=== PATIENT | male | born 1975 | race Hispanic/Latino ===

== ENCOUNTER 2017-07-19 12:35 | Observation (INO) | payer SELFPAY ==
[~2017-07-19] VITALS: Ht 167.6 cm; Wt 80.7 kg
[~2017-07-19 12:35] MED LIST: POTA10TA14 PO
[2017-07-19 13:07] LABS: BASOPHILS % (AUTO) 0.8 % (0.0-5.0); HEMATOCRIT 31.9 % (42-54); LYMPHOCYTES % (AUTO) 19.4 % (21.0-51.0); MEAN CORPUSCULAR HEMOGLOBIN 40.6 pg (27.0-33.0); MEAN CORPUSCULAR HGB CONC 36.1 g/dL (32.0-36.0); MEAN CORPUSCULAR VOLUME 112.5 fL (79-99); NEUTROPHILS % (AUTO) 62.8 % (40.0-77.0); NUCLEATED RED BLOOD CELLS 0.1 % (0.0-0.19); PLATELET COUNT (AUTO) 64 K/uL (130-400); RED BLOOD CELL COUNT(AUTO) 2.84 MIL/uL (4.50-6.20); RED CELL DISTRIBUTION WIDTH 14.2 % (11.0-15.5); WHITE BLOOD COUNT (AUTO) 3.2 K/uL (4.8-10.8)
[2017-07-19 13:18] LABS: CREATININE 0.7 mg/dL (0.5-1.5); POTASSIUM 3.2 mmol/L (3.5-5.1)
[2017-07-19 13:21] LABS: INR 1.48 (0.85-1.15); PROTHROMBIN TIME 15.4 SEC (9.6-11.6)
[2017-07-19 13:23] LABS: ALBUMIN 1.9 g/dL (3.5-5.0); BILIRUBIN,TOTAL 8.2 mg/dL (0.2-1.0); TOTAL PROTEIN, SERUM 8.2 g/dL (6.0-8.3)
[2017-07-19 13:24] LABS: APPEARANCE,URINE Clear (CLEAR); BILIRUBIN,URINE Negative (NEGATIVE); COLOR,URINE Yellow (YELLOW); GLUCOSE, URINE (UA) Negative (NEGATIVE); KETONES,URINE Negative (NEGATIVE); LEUKOCYTE ESTERASE ,URINE Negative (NEGATIVE); NITRATE,URINE Negative (NEGATIVE); OCCULT BLOOD,URINE Large (NEGATIVE); PROTEIN,URINE Negative (NEGATIVE)
[2017-07-19] MEDS ORDERED: ONDANSETRON HCL MDV 20ML 2 MG/ML VIAL ONE (13:38)
[2017-07-19] MEDS ORDERED: MORPHINE SULFATE 4 MG/1ML SYG ONE ×2 (13:39→16:26)
[2017-07-19 13:41] LABS: RBC,URINE 26-50 /HPF (0-1)
[2017-07-19 13:42] LABS: BACTERIA,URINE Rare /HPF (None Seen); SQUAMOUS EPITHELIAL CELL,UR Rare /HPF (0-2)
[2017-07-19] MEDS ORDERED: IPRATROPIUM/ALBUTEROL SULFATE 3 ML SOLUTION IH ONE (13:47)
[2017-07-19] MEDS ORDERED: CEFTRIAXONE SODIUM 1 GM ONE (14:43)
[2017-07-19] MEDS ORDERED: VANCOMYCIN PROTOCOL PER PHARMACY IV SCH (16:30)
[2017-07-19] MEDS ORDERED: COMPOUND IV REFRIGERATED 1 EACH IVSOLN MISC PRN (16:30)
[2017-07-19] MEDS ORDERED: VANCOMYCIN 2 GM in SODIUM CHLORIDE 0.9% 500ML 500 ML IV ONE (17:00)
[2017-07-19] MEDS ORDERED: ONDANSETRON HCL MDV 20ML 2 MG/ML VIAL IVP PRN (18:00)
[2017-07-19] MEDS ORDERED: ACETAMINOPHEN 325 MG TAB PO PRN (18:00)
[2017-07-19 18:08] VITALS: BP 120/50
[2017-07-19] MEDS: IPRATROPIUM/ALBUTEROL SULFATE 3 ML SOLUTION IH SCH ×2 (18:27→23:30)
[2017-07-19] MEDS ORDERED: POTASSIUM CHLORIDE 10% ELIXIR 20 MEQ/15 ML UDCUP PO PRN (18:30)
[2017-07-19] MEDS ORDERED: POTASSIUM CHLORIDE 20MEQ/100ML 100 ML IV PRN (18:30)
[2017-07-19] MEDS ORDERED: LIDOCAINE HCL-MPF 1% 2ML VIAL IVP PRN (18:30)
[2017-07-19 19:00] VITALS: BP 120/79
[2017-07-19] MEDS: MORPHINE SULFATE 4 MG/1ML SYG IVP PRN (20:48)
[2017-07-19] MEDS ORDERED: METHYLPREDNISOLONE SOD SUCC 40MG/ML 1ML IVP SCH (21:00)
[2017-07-19] MEDS: POTASSIUM CHLORIDE 20 MEQ ERTAB PO PRN (22:30)
[2017-07-20] VITALS: BP 114/71
[2017-07-20] MEDS: DiphenhydrAMINE HCL 50 MG/ML VIAL IV PRN (00:50)
[2017-07-20] MEDS: POTASSIUM CHLORIDE 20 MEQ ERTAB PO PRN ×2 (00:50→03:16)
[2017-07-20] MEDS: VANCOMYCIN 1.25 GM in SODIUM CHLORIDE 0.9% 250 ML IV SCH ×3 (01:26→18:09)
[2017-07-20] MEDS: MORPHINE SULFATE 4 MG/1ML SYG IVP PRN ×3 (03:16→19:17)
[2017-07-20 04:00] VITALS: BP 128/76
[2017-07-20 04:02] LABS: BASOPHILS % (AUTO) 0.2 % (0.0-5.0); EOSINOPHILS % (AUTO) 0.2 % (0.0-8.0); HEMATOCRIT 28.6 % (42-54); LYMPHOCYTES % (AUTO) 7.7 % (21.0-51.0); MEAN CORPUSCULAR HEMOGLOBIN 40.2 pg (27.0-33.0); MEAN CORPUSCULAR HGB CONC 35.7 g/dL (32.0-36.0); MEAN CORPUSCULAR VOLUME 112.5 fL (79-99); MONOCYTES % (AUTO) 1.9 % (3.0-13.0); PLATELET COUNT (AUTO) 47 K/uL (130-400); RED BLOOD CELL COUNT(AUTO) 2.54 MIL/uL (4.50-6.20); RED CELL DISTRIBUTION WIDTH 14.8 % (11.0-15.5); WHITE BLOOD COUNT (AUTO) 2.8 K/uL (4.8-10.8)
[2017-07-20 04:08] LABS: CREATININE 0.8 mg/dL (0.5-1.5); POTASSIUM 3.8 mmol/L (3.5-5.1)
[2017-07-20] MEDS ORDERED: LACTULOSE 20 GM/30 ML UDCUP PO SCH (09:00)
[2017-07-20 09:31] VITALS: BP 132/67
[2017-07-20] MEDS: METHYLPREDNISOLONE SOD SUCC 40MG/ML 1ML IVP SCH ×2 (11:18→20:10)
[2017-07-20] MEDS: LACTULOSE 20 GM/30 ML UDCUP PO SCH ×3 (11:18→20:10)
[2017-07-20 11:39] VITALS: BP 116/63
[2017-07-20] MEDS ORDERED: CEFTRIAXONE SODIUM 1 GM IVP SCH (14:00)
[2017-07-20 16:02] VITALS: BP 131/76
[2017-07-20 19:45] VITALS: BP 132/72
[2017-07-21] VITALS: BP 128/87
[2017-07-21] MEDS: MORPHINE SULFATE 4 MG/1ML SYG IVP PRN ×2 (01:04→08:30)
[2017-07-21] MEDS: VANCOMYCIN 1.25 GM in SODIUM CHLORIDE 0.9% 250 ML IV SCH ×2 (01:04→08:29)
[2017-07-21] MEDS: DiphenhydrAMINE HCL 50 MG/ML VIAL IV PRN ×2 (02:53→09:00)
[2017-07-21 04:28] LABS: BASOPHILS % (AUTO) 0.5 % (0.0-5.0); HEMATOCRIT 28.2 % (42-54); LYMPHOCYTES % (AUTO) 5.6 % (21.0-51.0); MEAN CORPUSCULAR HEMOGLOBIN 41.4 pg (27.0-33.0); MEAN CORPUSCULAR HGB CONC 36.4 g/dL (32.0-36.0); MEAN CORPUSCULAR VOLUME 113.7 fL (79-99); MONOCYTES % (AUTO) 4.6 % (3.0-13.0); NEUTROPHILS % (AUTO) 89.3 % (40.0-77.0); NUCLEATED RED BLOOD CELLS 0.1 % (0.0-0.19); PLATELET COUNT (AUTO) 49 K/uL (130-400); RED BLOOD CELL COUNT(AUTO) 2.48 MIL/uL (4.50-6.20); RED CELL DISTRIBUTION WIDTH 14.4 % (11.0-15.5); WHITE BLOOD COUNT (AUTO) 7.5 K/uL (4.8-10.8)
[2017-07-21 04:38] LABS: CREATININE 0.7 mg/dL (0.5-1.5); POTASSIUM 4.3 mmol/L (3.5-5.1)
[2017-07-21 04:40] VITALS: BP 116/69
[2017-07-21 07:30] VITALS: BP 123/63
[2017-07-21] MEDS: LACTULOSE 20 GM/30 ML UDCUP PO SCH (08:29)
[2017-07-21] MEDS: METHYLPREDNISOLONE SOD SUCC 40MG/ML 1ML IVP SCH (08:29)
[2017-07-21] MEDS ORDERED: FLUT1DIS3 IH (09:39)
[2017-07-21] MEDS ORDERED: LACT PO (09:39)
[2017-07-21] MEDS ORDERED: AMOX-426 PO (09:39)
[2017-07-21 11:00] VITALS: BP 110/65
== END 2017-07-21 12:22 | disposition home or self-care (01) ==
LOC: EDH 12:35 → EDHIP 12:36 → 3DH 17:18
PROVIDERS: ADMIT Internal Medicine; ATTEND Internal Medicine
DX: L03.116 Cellulitis of left lower limb (principal); J44.9 Chronic obstructive pulmonary disease, unspecified; B19.20 Unspecified viral hepatitis C without hepatic coma; D61.818 Other pancytopenia; K29.70 Gastritis, unspecified, without bleeding; K70.30 Alcoholic cirrhosis of liver without ascites; K21.9 Gastro-esophageal reflux disease without esophagitis; F31.9 Bipolar disorder, unspecified; F20.9 Schizophrenia, unspecified; F14.10 Cocaine abuse, uncomplicated; F12.90 Cannabis use, unspecified, uncomplicated; Z96.661 Presence of right artificial ankle joint
CPT/HCPCS: 36415 ×3; 71045; 73562; 73610; 80048 ×2; 80053; 80202; 81001; 82140 ×3; 83605 ×2; 85025 ×3; 85610; 85730; 87040 ×2; 93971; 94640 ×3; 94664; 96365; 96366 ×2; 96375 ×2; 96376 ×2; 97161; 99285; A4218; G0378 ×48; G8981; G8982; G8983; J0696 ×2; J1200 ×3; J2270 ×8; J2920 ×4; J3370 ×3; J7030 ×2; J7040

== ENCOUNTER 2017-09-07 18:38 | Emergency (ER) | payer MEDICAID ==
[~2017-09-07 18:38] MED LIST changes: +AMOX-426 PO; +FLUT1DIS3 IH; +LACT PO
[2017-09-07 19:25] LABS: CREATININE 0.7 mg/dL (0.5-1.5); POTASSIUM 3.1 mmol/L (3.5-5.1)
[2017-09-07 19:27] LABS: BASOPHILS % (AUTO) 0.6 % (0.0-5.0); EOSINOPHILS % (AUTO) 1.4 % (0.0-8.0); HEMATOCRIT 32.8 % (42-54); LYMPHOCYTES % (AUTO) 37.5 % (21.0-51.0); MEAN CORPUSCULAR HEMOGLOBIN 38.3 pg (27.0-33.0); MEAN CORPUSCULAR HGB CONC 35.1 g/dL (32.0-36.0); MEAN CORPUSCULAR VOLUME 109.2 fL (79-99); MONOCYTES % (AUTO) 10.2 % (3.0-13.0); NEUTROPHILS % (AUTO) 50.3 % (40.0-77.0); NUCLEATED RED BLOOD CELLS 0.1 % (0.0-0.19); PLATELET COUNT (AUTO) 60 K/uL (130-400); RED CELL DISTRIBUTION WIDTH 15.2 % (11.0-15.5)
[2017-09-07 19:30] LABS: INR 1.44 (0.85-1.15); PARTIAL THROMBOPLASTIN TIME 31.3 SEC (26.3-35.5)
[2017-09-07 19:34] LABS: ALBUMIN 2.2 g/dL (3.5-5.0); BILIRUBIN,TOTAL 5.2 mg/dL (0.2-1.0); TOTAL PROTEIN, SERUM 8.1 g/dL (6.0-8.3)
[2017-09-07] MEDS ORDERED: POTASSIUM BICARB/CIT AC 25 MEQ TABLET.EFF ONE (19:34)
[2017-09-07 20:29] LABS: EOSINOPHILS % (MANUAL) 2 % (1-6); LYMPHOCYTES % (MANUAL) 28 % (22-44); MAN.DIFF COMMENT-IMPRESSION MANUAL DIFFERENTIAL; MONOCYTES % (MANUAL) 5 % (2-9); PLATELET MORPHOLOGY COMMENT DECREASED; SEGMENTED NEUTROPHILS % 65 % (40-70)
== END 2017-09-07 19:59 | disposition home or self-care (01) ==
LOC: EDH 18:38
DX: K70.30 Alcoholic cirrhosis of liver without ascites (principal); R06.00 Dyspnea, unspecified; F20.9 Schizophrenia, unspecified; Z72.0 Tobacco use
CPT/HCPCS: 36415; 71045; 80053; 82140; 83690; 84484; 85025; 85610; 85730; 93005